=== PATIENT | female | born 1960 | race Caucasian/White ===

== ENCOUNTER 2024-08-17 11:32 | Outpatient (CLI) | payer OTHER, SELFPAY ==
--- OUTSIDE RECORDS SUMMARY | 2024-08-17 11:45 | XMS_ITS | Clinical Summary ---
Author Organization [facility] Address [address] [place] [address] Care Team Providers Care Car Driver Name Role Phone Sravani Valdez MD Primary Care Provider Allergies Active Allergy Reactions Criticality Noted Date Comments Codeine Itching Low 07/12/2023 Medications cholecalciferol (VITAMIN D-3) 5,000 unit tablet Ac tive latanoprost (XALATAN) 0.005 % ophthalmic solution 1 drop nightly Activ e alpha lipoic acid 200 mg tablet Take by mouth Ac tive omega-3 fatty acids-fish oil 300-1,000 mg capsule Take 2 capsules (2 g total) by mouth daily Active albuterol HFA (PROVENTIL HFA,VENTOLIN HFA,PROAIR HFA) 90 mcg/actuation inhaler Inhale 2 puffs every 6 (six) hours as needed for wheezing Active ipratropium-albut Anastacio (COMBIVENT RESPIMAT) 20-100 mcg/actuation inhalerIndication s:Chronic Obstructive Pulmonary Disease with Bronchospasms Inhale 1 puff 4 (four) times a day Active vitamin E 400 unit capsule Take 1 capsule (400 Units total) by mouth Active fluticasone-umecl idin-vilanter (Trelegy Ellipta) 100-62.5-25 mcg inhaler Inhale 1 puff daily Active rosuvastatin (CRESTOR) 10 mg tablet Take 1 tablet (10 mg total) by mouth daily Active calcium carbonate 500 mg calcium (1,250 mg) capsule Take 1 capsule (1,250 mg total) by mouth 2 (two) times a day with meals Active alcaftadine 0.25 % drops Administer into affected eye(s) daily Active oxygenIndications :Dyspnea Administer into each nostril Active Trelegy Ellipta 200-62.5-25 mcg inhaler 4 Active omeprazole (PriLOSEC) 40 mg capsule Take 1 capsule (40 mg total) by mouth daily 90 capsule 3 5 04/11/19 26 Active Active Problems Problem Noted Date Diagnosed Date Abnormal liver enzymes 07/21/2023 Alcoholic cirrhosis of liver without ascites 03/2024 Resolved Problems Problem Noted Date Diagnosed Date Resolved Date Gastric ulcer with obstruction 11/08/2023 08/17/2024 Encounters Date Type Department Care Team Description 08/17/2024 Results Follow-Up [facility] [address] [place] [address] Medical Office Building [address], [address] [place] [address] Miguel Bangura MD 08/14/2024 10:00 AM CDT Procedure visit [facility] [address] [place] [address] 12th [place] [address] [place] [address] Alcohol-associated liver disease 08/14/2024 9:20 AM CDT Office Visit [facility] 12th [place] [address] [place] [address] Miguel Bangura MD Alcohol-associated liver disease (Primary Dx) from Last 3 Months Surgical History Surgery Date Site/Laterality Comments LASIK Medical History Medical History Date Comments COPD (chronic obstructive pulmonary disease) (HC C) Family History Medical History Relation Name Comments Diabetes Father Relation Name Status Comments Father Social History Tobacco Use Types Packs/Day Years Used Date Smoking Tobacco: Every Day Cigarettes Smokeless Tobacco: Never Tobacco Cessation:Ready to Q uit: Not Asked; Counseling Given: Not Answered AUDIT-C Answer Date Recorded Q1: How often do you have a drink containing alc ohol? Never 10/24/2023 Average Number of Drinks Not on file 024 Frequency of Binge Drinking Not on file 10/03 Personal Safety Answer Date Recorded Have you ever been in or are you currently in a harmful physical or emotional relationship or is someone making you feel afraid or unsafe? 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 Gender Identity Not on file Sexual Orientation Not on file Obstetrics History Last Filed Vital Signs Vital Sign Reading Time Taken Comments Blood Pressure 98/57 08/14/2024 9:27 AM CDT Pulse 106 08/14/2024 9:27 AM CDT Temperature 36.6 C (97.8 F) 08/14/2024 9:27 AM CDT Respiratory Rate 16 02/10/2024 1:20 PM TECHNOLOGY SUPPORT ANALYST Oxygen Saturation 98% 02/10/2024 1:30 PM TECHNOLOGY SUPPORT ANALYST Inhaled Oxygen Concentration - - Weight 50.9 kg (112 lb 3.2 oz) 08/14/2024 9:27 A M CDT Height 157.5 cm (5' 2 ) 08/14/2024 9:27 AM CDT Body Mass Index 20.52 08/14/2024 9:27 AM CDT Plan of Treatment Health Maintenance Due Date Last Done Comments Cervical Cancer Screening 1960 Colon Cancer Screening-Colonoscopy 1960 Depression Screening 1960 Hepatitis C Screening 1960 DTaP/Tdap/Td Vaccine (1 - Tdap) 11/08/1971 Hepatitis B Screening 1978 Regular Well Visit/Exam 18-64 1978 Pneumococcal vaccine <65 (1 of 2 - PCV) 11/08/1979 Zoster Vaccine (2 of 2) 01/08/2022 11/13/2021 Breast Cancer Screening-Mammogram 04/12/2023 04/12/2022, 04/12/2022, 09/28/2019 Covid-19 Vaccine (2 - 2023-2 5 season) 2023 07/09/2020 Influenza Vaccine (Season Ended) 2024 03/07/2023, 01/18/2020, 01/25/2017, Additional history exists Procedures Procedure Name Priority Date/Time Associated Diagnosis Comments LIVER ELASTOGRAPHY W/O IMAGING W/I&R Routine 08/14/2024 10:32 AM CDT Alcohol-associated liver disease from Last 3 Months Results * Liver Elastography w/o Imaging W/I&R -[facility] (All Locations) (08/14/2024 10:32 AM CDT) Anatomical Region Laterality Modality Other Miguel Bangura MD GI PROCEDURE ORDERABLES Final Result from Last 3 Months Insurance [facility] OPT[employer] PPO [facility] [employer] PPO Advance Directives For more information, please contact: [phone] * Full Code (Latest Code Status on File) Date Activated Date Inactivated Comments 02/10/2024 11:45 AM 02/10/2024 5:41 PM * Full Code Date Activated Date Inactivated Comments 10/24/2023 10:34 AM 10/24/2023 4:56 PM Care Teams Car Driver Relationship Specialty Start Date End Date Sravani Valdez MD [address] [place] [address] PCP - General Family Medicine 03/31/23
--- OUTSIDE RECORDS SUMMARY | 2024-08-17 11:45 | XMS_ITS | Encounter Summary ---
Author Organization [facility] Address [address] [place] [address] Phone Care Team Providers Care Pharmacovigilance Safety Expert Name Role Phone Sravani Valdez MD Primary Care Provider Encounter Details Date Type Department Care Team (Late st Contact Info) Description 08/17/2024 Results Follow-Up [facility] [address] [place] [address] Medical Office Building [address], [address] [place] [address] Miguel Bangura MD [address] [place] [address] Social History Tobacco Use Types Packs/Day Years Used Date Smoking Tobacco: Every Day Cigarettes Smokeless Tobacco: Never AUDIT-C Answer Date Recorded Q1: How often [...] on file 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 [address] PCP - General Family Medicine 03/31/23 documented as of this encounter
--- OUTSIDE RECORDS SUMMARY | 2024-08-17 11:45 | XMS_ITS | Clinical Summary ---
Author Organization 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 Gender Identity Not on file Sexual Orientation Not on file Plan of Treatment Health Maintenance Due Date Last Done Comments Cervical Cancer Screening Pa p Smear (Age 30 to 64) Every 3 Years 1960 Colorectal Cancer Screening Colonoscopy (10 Years) 1960 Annual Physical 11/08/1963 Hepatitis C 1978 DTaP, Tdap and Td Vaccines ( 1 - Tdap) 11/08/1979 Cervical Cancer Screening Pa p with HPV Testing (Age 30 to 64) Every 5 Years 1990 Cervical Cancer Screening wi th HPV 1990 Pneumococcal Vaccine: 50+ Years (1 of 1 - PCV) 2010 Zoster Vaccines (1 of 2) 2010 COVID-19 Vaccine ( - 2023-2 5 season) 2023 Mammogram Screening 04/12/2024 04/12/2022, 09/28/2019 RSV Immunization or 60+ Years (1 - 1-dose 75+ series) 11/08/2035 Meningococcal B Vaccine Aged Out No l onger eligible based on patient's age to complete this topic Meningococcal Vaccine Aged Out No theodore kaden eligible based on patient's age to complete this topic RSV Immunizations Under 20 Months Aged Out No longer eligible b ased on patient's age to complete this topic Procedures Procedure Name Priority Date/Time Associated Diagnosis Comments MG SCREENING W CHIO LUANNE DIGI Routine 04/12/2022 1:25 PM DYNAMITE CARTRIDGE CRIMPER Visit for screening mammogram from Last 3 Months or Most Recently Relevant to Health Maintenance Results * MG SCREENING W CHIO LUANNE DIGI (04/12/2022 1:25 PM DYNAMITE CARTRIDGE CRIMPER) Anatomical Region Laterality Modality Breast Bilateral Mammography 04/12/2022 1:27 PM DYNAMITE CARTRIDGE CRIMPER Narrative 04/12/2022 1:29 PM DYNAMITE CARTRIDGE CRIMPER Examination: Screening bilateral mammogram Exam Date: 04/12/2022 1:25 PM Clinical history: Routine screening. No complaints. Patient's sister was diagnosed with breast cancer at age 35. Comparison: 09/28/2019, 04/14/2018, 10/01/2016 Technique: Digital screening mammography of both breasts was performed. Breast tomosynthesis acquisitions were obtained and reviewed. This study was read with the assistance of a computer-aided detection system. Tissue density: The breast tissue is heterogeneously dense, which may obscure small masses. Findings: No suspicious masses, malignant appearing calcifications, skin thickening or other abnormalities are present. No significant change from the prior exam. IMPRESSION: No suspicious mammographic findings. Recommendation: 1. Routine Screening, Bilateral Given patient's heterogeneous breast tissue and family history, consider MRI of the bilateral breasts to eliminate mammographically occult malignancy. Assessment: ACR BI-RADS 1 - NEGATIVE Ordered By: AGUS ADAIR Interpreted By: Quan Christensen MD, 04/12/2022 1:27 PM us Agus Adair PA-C MAMMO Final Resul t from Last 3 Months or Most Recently Relevant to Health Maintenance Insurance [facility] Care Teams Parent Partner Relationship Specialty Start Date End Date Sravani Valdez MD [address] [place] [id number] PCP - General FAMILY PRACTICE 07/16/18
--- OUTSIDE RECORDS SUMMARY | 2024-08-17 11:45 | XMS_ITS | Referral Summary ---
Author Organization [facility] Address [address] [place] [address] Care Team Providers Care Chip Silo Tender Name Role Phone Sravani Valdez MD Primary Care Provider Encounters Date Type Department Care Team Description 08/17/2024 Results Follow-Up [facility] [address] [place] [address] Medical Office Building [address], [address] [place] [address] Miguel Bangura MD 08/14/2024 10:00 AM CDT Procedure visit [facility] [address] [place] [address] [place] [address] [place] [address] Alcohol-associated liver disease 08/14/2024 9:20 AM CDT Office Visit [facility] [address] [place] [address] [place] [address] [place] [address] Miguel Bangura MD Alcohol-associated liver disease (Primary Dx) from Last 3 Months Allergies Active Allergy Reactions Criticality Noted Date [...] Date Gastric ulcer with obstruction 11/08/2023 08/17/2024 Social History Tobacco Use Types Packs/Day Years [...] on file 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 Gender Identity Not on file Sexual Orientation Not on file Last Filed Vital Signs Vital Sign Reading Time Taken Comments Blood Pressure 98/57 08/14/2024 9:27 AM CDT Pulse 106 08/14/2024 9:27 AM CDT Temperature 36.6 C (97.8 F) 08/14/2024 9:27 AM CDT Respiratory Rate 16 02/10/2024 1:20 PM MEDICAL DETAILIST Oxygen Saturation 98% 02/10/2024 1:30 PM MEDICAL DETAILIST Inhaled Oxygen Concentration - - Weight 50.9 kg (112 lb 3.2 oz) 08/14/2024 9:27 A M CDT Height 157.5 cm (5' 2 ) 08/14/2024 9:27 AM CDT Body Mass Index 20.52 08/14/2024 9:27 AM CDT Plan of Treatment Not on file Procedures Procedure Name Priority Date/Time Associated Diagnosis Comments LIVER ELASTOGRAPHY W/O IMAGING W/I&R Routine 08/14/2024 10:32 AM CDT Alcohol-associated liver disease from Last 3 Months Results * Liver Elastography w/o Imaging W/I&R -[facility] (All Locations) (08/14/2024 10:32 AM CDT) Anatomical Region Laterality Modality Other Miguel Bangura MD GI PROCEDURE ORDERABLES Final Result from Last 3 Months Insurance [facility] OPTIONS PPO [facility] OPTIONS PPO Advance Directives For more information, please contact: [phone] * Full Code (Latest Code Status on File) Date Activated Date Inactivated Comments 02/10/2024 11:45 AM 02/10/2024 5:41 PM * Full Code Date Activated Date Inactivated Comments 10/24/2023 10:34 AM 10/24/2023 4:56 PM Care Teams Chip Silo Tender Relationship Specialty Start Date End Date Sravani Valdez MD [address] [place] [address] PCP - General Family Medicine 03/31/23
[2024-08-17 12:09] LABS: Basophils Absolute Auto 0.04 K/mm3 (0.00-0.10); Basophils Percent Auto 0.7 % (0.0-1.0); Eosinophils Absolute Auto 0.08 K/mm3 (0.02-0.50); Eosinophils Percent Auto 1.3 % (1.0-6.0); Hematocrit 36.3 % (35.0-49.0); Hemoglobin 10.8 g/dL (12.0-15.0); Immature Granulocyte Absolute 0.01 K/mm3 (0.00-0.00); Immature Granulocyte Percent A 0.2 % (0.0-0.0); Lymphocytes Absolute Auto 2.25 K/mm3 (1.10-4.50); Lymphocytes Percent Auto 36.7 % (18.0-42.0); Mean Corpuscular HGB Conc 29.8 g/dL (32-36); Mean Corpuscular Hemoglobin 21.7 pg (27.0-31.0); Mean Platelet Volume 10.7 fl (9.2-11.8); Monocytes Absolute Auto 0.35 K/mm3 (0.10-0.90); Monocytes Percent Auto 5.7 % (2.0-11.0); Neutrophils Percent Auto 55.4 % (50.0-70.0); Platelet Count Result 224 K/mm3 (150-420); Red Blood Count 4.97 M/mm3 (4.20-5.40); Red Cell Distribution Width 16.5 % (11.6-14.4); White Blood Count 6.1 K/mm3 (4.8-10.8)
[2024-08-17 12:18] LABS: Hemoglobin A1C 5.6 % (<5.7)
[2024-08-17 12:38] LABS: Alanine Aminotransferase 22 U/L (6-35); Albumin Level 4.2 g/dL (3.5-5.1); Alkaline Phosphatase 58 U/L (38-126); Anion Gap 2 mmol/L (4-12); Aspartate Amino Transferase 37 U/L (14-36); Bilirubin,Total 0.8 mg/dL (0.2-1.3); Blood Urea Nitrogen 10 mg/dL (7-17); Calcium 9.3 mg/dL (8.4-10.2); Carbon Dioxide 29 mmol/L (22-30); Chloride 108 mmol/L (98-107); Cholesterol 202 mg/dL (0-200); Estimated Glomerular Filt Rate > 60; Glucose 95 mg/dL (65-110); HDL Direct 73 mg/dL; LDL Cholesterol Calculated 106 mg/dL (<130); Osmolality Calculated 287 mOsm/kg (285-295); Potassium 4.6 mmol/L (3.4-5.0); Sodium 139 mmol/L (137-145); Total Protein 6.9 g/dL (6.3-8.2); Triglycerides 115 mg/dL (<150)
[2024-08-17 12:49] LABS: Prothrombin Time 11.4 Seconds (9.50-12.1)
[2024-08-20 07:33] LABS: Alpha Fetoprotein Tumor Marker 2.9 ng/mL
== END 2024-08-17 11:33 | disposition home or self-care (01) ==
LOC: CHSLAB 11:43
PROVIDERS: PCP Family Medicine
DX: R73.09 Other abnormal glucose (principal); E78.2 Mixed hyperlipidemia; K70.30 Alcoholic cirrhosis of liver without ascites
CPT/HCPCS: 36415; 80053; 80061; 82105; 83036; 85025; 85610